=== PATIENT | female | born 1940 | race Caucasian/White ===

== ENCOUNTER 2024-05-22 15:47 | Inpatient (IN) | payer MEDICARE ==
[2024-05-22] MEDS: Apixaban 2.5 MG TAB PO SCH (21:13)
[2024-05-22] MEDS: Gabapentin 100 MG CAP PO SCH (21:13)
[2024-05-23] MEDS: GUAIFENESIN SF SOLN 200 MG/10 ML UDCUP PO SCH (00:09)
[2024-05-23] MEDS: Benzonatate 100 MG CAP PO PRN (00:09)
[2024-05-23] MEDS: traMADol HCl 50 MG TAB PO PRN (01:29)
[2024-05-23 05:24] LABS: ALT (SGPT) 14 U/L (8-55); AST (SGOT) 13 U/L (5-34); Albumin 2.6 g/dL (3.4-4.8); Alkaline Phosphatase 62 U/L (40-110); Anion Gap 11 mmol/L (10-20); BUN (Urea Nitrogen) 23 mg/dL (9.8-20.1); Bilirubin, Total 0.6 mg/dL (0.2-1.2); Calc. Creatinine Clearance 46 mL/min (70-130); Calcium 9.4 mg/dL (7.8-10.44); Carbon Dioxide 30 mmol/L (23-31); Chloride 104 mmol/L (98-107); Estimated GFR 67; Globulin 3.2 g/dL (2.4-3.5); Glucose 96 mg/dL (83-110); Potassium 4.2 mmol/L (3.5-5.1); Protein, Total 5.8 g/dL (5.8-8.1); Sodium 141 mmol/L (136-145)
[2024-05-23 05:38] LABS: #Basophils 0.1 thou/uL (0.0-0.2); #Eosinophils 0.1 thou/uL (0.0-0.7); #Lymphocytes 0.8 thou/uL (1.20-3.40); #Monocytes 0.7 thou/uL (0.11-0.59); #Neutrophils 3.8 thou/uL (1.40-6.50); %Basophils 1.1 % (0.0-1.0); %Eosinophils 2.1 % (0.0-10.0); %Lymphocytes 14.8 % (21.0-51.0); %Monocytes 12.5 % (0.0-10.0); %Neutrophils 69.6 % (42.0-75.0); Hematocrit 26.2 % (36.0-47.0); Hemoglobin 8.4 g/dL (12.0-16.0); Mean Corpuscular HGB CONC 32.1 g/dL (32.0-36.0); Mean Corpuscular Hemoglobin 30.1 pg (27.0-31.0); Mean Corpuscular Volume 93.6 fl (78.0-98.0); Mean Platelet Volume 7.6 fL (7.4-10.4); Platelet Count 201 10x3/uL (130-400); White Blood Cell (WBC) Count 5.5 10x3/uL (4.8-10.8)
[2024-05-23] MEDS: Spironolactone 25 MG TAB PO SCH (10:39)
[2024-05-23] MEDS: Losartan 25 MG TAB PO SCH (10:40)
[2024-05-23] MEDS: Aspirin Chewable 81 MG TAB PO SCH (10:40)
[2024-05-23] MEDS: Empagliflozin 10 MG TAB PO SCH (10:41)
[2024-05-23] MEDS: Furosemide 40 MG TAB PO SCH (10:41)
[2024-05-23] MEDS: Amiodarone 200 MG TAB PO SCH (10:42)
[2024-05-25] MEDS: Acetaminophen 325 MG TAB PO PRN (17:54)
[2024-05-26] MEDS: Benzonatate 100 MG CAP PO SCH (09:43)
[2024-05-28] MEDS ORDERED: traMADol HCl 50 MG TAB ONE ×2 (06:11→17:10)
[2024-05-28] MEDS ORDERED: Aspirin Chewable 81 MG TAB ONE ×2 (08:11→17:10)
[2024-05-28] MEDS ORDERED: Acetaminophen 325 MG TAB ONE ×2 (08:11→17:10)
[2024-05-28] MEDS ORDERED: Amiodarone 200 MG TAB ONE ×2 (08:11→17:10)
[2024-05-28] MEDS ORDERED: Apixaban 2.5 MG TAB ONE ×2 (08:11→17:10)
[2024-05-28] MEDS ORDERED: Gabapentin 100 MG CAP ONE ×2 (09:11→17:10)
[2024-05-28] MEDS ORDERED: Losartan 25 MG TAB ONE ×2 (09:11→17:10)
[2024-05-28] MEDS ORDERED: Furosemide 40 MG TAB ONE ×2 (09:11→17:10)
[2024-05-28] MEDS ORDERED: Benzonatate 100 MG CAP ONE ×2 (09:11→17:10)
[2024-05-28] MEDS ORDERED: Spironolactone 25 MG TAB ONE ×2 (09:11→17:10)
[2024-05-28] MEDS ORDERED: Empagliflozin 10 MG TAB ONE ×2 (09:11→17:10)
[2024-05-29] MEDS ORDERED: Aspirin Chewable 81 MG TAB ONE (17:13)
[2024-05-29] MEDS ORDERED: Benzonatate 100 MG CAP ONE (17:13)
[2024-05-29] MEDS ORDERED: Losartan 25 MG TAB ONE (17:13)
[2024-05-29] MEDS ORDERED: predniSONE 20 MG TAB ONE (17:13)
[2024-05-29] MEDS ORDERED: Apixaban 2.5 MG TAB ONE (17:13)
[2024-05-29] MEDS ORDERED: Furosemide 40 MG TAB ONE (17:13)
[2024-05-29] MEDS ORDERED: Gabapentin 100 MG CAP ONE (17:13)
[2024-05-29] MEDS ORDERED: Empagliflozin 10 MG TAB ONE (17:13)
[2024-05-29] MEDS ORDERED: Amiodarone 200 MG TAB ONE (17:13)
[2024-05-29] MEDS ORDERED: Albuterol 1.25 MG (3 mL) NEB ONE (17:13)
[2024-05-29] MEDS ORDERED: Spironolactone 25 MG TAB ONE (17:13)
[2024-05-29] MEDS: Albuterol 2.5 MG (3 mL) NEB ONE (20:38)
[2024-05-29] MEDS: predniSONE 20 MG TAB ONE (20:38)
[2024-05-30] MEDS: traMADol HCl 50 MG TAB PO PRN (09:11)
[2024-05-30] MEDS: predniSONE 20 MG TAB PO SCH (09:24)
[2024-05-30] MEDS: Albuterol 2.5 MG (3 mL) NEB NEB PRN (14:26)
[2024-05-30 20:08] VITALS: BMI 18.6
[2024-05-31 06:08] LABS: Hematocrit 28.3 % (36.0-47.0); Hemoglobin 9.1 g/dL (12.0-16.0); Platelet Count 270 10x3/uL (130-400)
[2024-05-31 14:58] LABS: Bilirubin Negative (Negative); Blood, Urine Negative (Negative); Clarity Clear (Clear); Glucose, Urine (Dipstick) 500 mg/dL (Negative); Ketone, Urine Negative (Negative); Leukocyte Small (Negative); Nitrite Negative (Negative); Protein, Urine (Dipstick) Negative (Neg-Trace); Specific Gravity, Urine 1.015 (1.005-1.030); Urobilinogen 0.2 mg/dL (Less than 2); pH, Urine 6.5 (5.0-9.0)
[2024-05-31 14:59] LABS: Bacteria/HPF 1+ HPF (None Seen); RBC/HPF None Seen HPF (0-3); Squamous Epithelial 0-3 HPF (0-3); WBC/HPF 0-3 HPF (0-3)
[2024-06-01] MEDS: Polyethylene Glycol 3350 17 GM Packet PO SCH (16:50)
[2024-06-02] MEDS ORDERED: Hydrocortisone 1% Cream 30 GM TUBE TOP PRN (10:49)
[2024-06-02] MEDS ORDERED: Ondansetron ODT 4 MG TAB PO PRN (22:56)
[2024-06-05 05:22] VITALS: BMI 18.0
[2024-06-05 06:37] VITALS: BP 119/56; TEMP 98.4
== END 2024-06-05 16:00 | disposition home health service (06) | DRG 945 ==
LOC: BURMED 18:11
PROVIDERS: ADMIT Family Medicine; ATTEND Family Medicine
PROC: F07Z9ZZ Gait Training/Functional Ambulation Treatment (ICD-10-PCS; principal; 2024-06-03)
DX: R53.81 Other malaise (principal); I13.0 Hypertensive heart and chronic kidney disease with heart failure and stage 1 through stage 4 chronic kidney disease, or unspecified chronic kidney disease; S32.049A Unspecified fracture of fourth lumbar vertebra, initial encounter for closed fracture; S32.599A Other specified fracture of unspecified pubis, initial encounter for closed fracture; I50.22 Chronic systolic (congestive) heart failure; I42.8 Other cardiomyopathies; E78.5 Hyperlipidemia, unspecified; I48.0 Paroxysmal atrial fibrillation; N18.30 Chronic kidney disease, stage 3 unspecified; K21.9 Gastro-esophageal reflux disease without esophagitis; R26.89 Other abnormalities of gait and mobility; Z79.82 Long term (current) use of aspirin; Z79.899 Other long term (current) drug therapy; Z88.1 Allergy status to other antibiotic agents; Z88.2 Allergy status to sulfonamides
CPT/HCPCS: 36415; 71046; 80053; 81001; 85014; 85018; 85025; 85049; 87086; J7512; J7611